=== PATIENT | female | born 1960 | race Caucasian/White ===

== ENCOUNTER 2021-09-05 22:15 | Emergency (ER) | payer OTHER ==
[2021-09-05 22:20] VITALS: TEMP 97.1
--- NOTE | 2021-09-05 23:03 | ED ---
Back Pain HPI - General Chief Complaint: Back Pain/Injury Stated Complaint: Rib Pain Time Seen by Provider: 09/05/21 22:32 Source: patient, RN notes reviewed, old records reviewed Limitations: no limitations - History of Present Illness Initial Comments: This is a 7-year-old female to the ER for evaluation. Patient presents today for evaluation of back pain chest pain. Patient has no significant history of similar injury. Patient was given a house and complained of pain severe pain in her chest wall on her back. No shortness of breath. Symptoms for 3 days she is here chiropractic 3 times with no help MD Complaint: back pain, back injury -: days(s) Similar Symptoms Previously: Yes Place: home Radiation: buttocks Severity: moderate Severity scale (1-10): 4 Quality: burning, sharp Consistency: constant Improves With: none Worsens With: none Associated Symptoms: denies other symptoms Treatments Prior to Arrival: other (none) - Related Data Home Medications Medication Instructions Recorded Confirmed Acetaminophen Tab [Tylenol Tab] 500 mg PO Q6H PRN 03/26/16 03/26/16 Azithromycin [Zithromax Z-pack] 250 - 500 mg PO DIRECTED 03/26/16 03/26/16 Benzonatate [Tessalon] 200 mg PO TID PRN 03/26/16 03/26/16 Previous Rx's Medication Instructions Recorded predniSONE 50 mg PO DAILY #5 tab 03/26/16 Allergies Allergy/AdvReac Type Severity Reaction Status Date / Time ibuprofen [From Motrin] Allergy Severe Rash/Hives Verified 03/26/16 14:41 shellfish derived [Shellfish] Allergy Swelling Verified 03/26/16 14:41 Review of Systems ROS Statement: Those systems with pertinent positive or pertinent negative responses have been documented in the HPI. ROS Other: All systems not noted in ROS Statement are negative. Past Medical History Past Medical History: No Reported History Additional Past Medical History / Comment(s): chronic back pain History of Any Multi-Drug Resistant Organisms: None Reported Past Surgical History: Section, Hysterectomy Past Psychological History: No Psychological Hx Reported Smoking Status: Current some day smoker Past Alcohol Use History: Rare Past Drug Use History: Marijuana General Exam Limitations: no limitations General appearance: alert, in no apparent distress Head exam: Present: atraumatic, normocephalic, normal inspection Eye exam: Present: normal appearance, PERRL, EOMI. Absent: scleral icterus, conjunctival injection, periorbital swelling ENT exam: Present: normal exam, mucous membranes moist Neck exam: Present: normal inspection. Absent: tenderness, meningismus, lymphadenopathy Respiratory exam: Present: normal lung sounds bilaterally. Absent: respiratory distress, wheezes, rales, rhonchi, stridor Cardiovascular Exam: Present: regular rate, normal rhythm, normal heart sounds. Absent: systolic murmur, diastolic murmur, rubs, gallop, clicks GI/Abdominal exam: Present: soft, normal bowel sounds. Absent: distended, tenderness, guarding, rebound, rigid Extremities exam: Present: normal inspection, full ROM, normal capillary refill. Absent: tenderness, pedal edema, joint swelling, calf tenderness Back exam: Present: normal inspection Neurological exam: Present: alert, oriented X3, CN II-XII intact Psychiatric exam: Present: normal affect, normal mood Skin exam: Present: warm, dry, intact, normal color. Absent: rash Course Vital Signs 09/05/21 22:17 Temperature 97.1 F L Pulse Rate 97 Respiratory 20 Rate Blood Pressure 152/91 O2 Sat by Pulse 94 L Oximetry - Reevaluation(s) Reevaluation #1: 09/06/21 01:30 Medical record is reviewed Reevaluation #2: 09/06/21 01:30 Patient is a improved and patient feels improved Medical Decision Making - Medical Decision Making 61 female to the emergency department for chest wall pain. Pain is improved here in the ER patient can be discharged home - Radiology Data Radiology results: report reviewed (Chest x-rays negative for acute disease), image reviewed Disposition Clinical Impression: Costochondritis, acute, Rib pain Disposition: ADMITTED IP TO THIS HOSP Condition: Fair Is patient prescribed a controlled substance at d/c from ED?: No Referrals: Nonstaff,Physician [Primary Care Provider] - 1-2 days
[2021-09-05] MEDS ORDERED: diazePAM 5 MG TAB PO STA (23:28)
[2021-09-05] MEDS ORDERED: HYDROmorphone 1 MG/ML 1 ML SYRINGE IM STA (23:28)
--- NOTE | 2021-09-05 23:56 | XR ---
EXAMINATION TYPE: XR chest 1V portable DATE OF EXAM: 09/05/2021 COMPARISON: 03/26/2016 HISTORY: Pain TECHNIQUE: Single view FINDINGS: There is some pulmonary hyperinflation with flattening the diaphragm. Heart and mediastinum are normal. There is no pleural effusion. There are no hilar masses. Bony thorax is intact. IMPRESSION: No active cardiopulmonary disease. There is probably COPD. No change.
[2021-09-06] MEDS ORDERED: traMADol 50 MG STARTER PACK 3 TAB BTL PO STA (01:27)
[2021-09-06] MEDS ORDERED: CYCLOBENZAPRINE 10MG STARTER 3 TAB BTL PO STA (01:27)
[2021-09-06] MEDS ORDERED: dexAMETHasone 2 MG TAB PO STA (01:31)
[2021-09-06 01:56] VITALS: BP 142/79; PULSE 56; RESP 18
== END 2021-09-06 01:53 | disposition other institution (70) ==
LOC: EC 22:15
DX: M94.0 Chondrocostal junction syndrome [Tietze] (principal); F17.200 Nicotine dependence, unspecified, uncomplicated; F12.90 Cannabis use, unspecified, uncomplicated; Z88.6 Allergy status to analgesic agent; Z90.710 Acquired absence of both cervix and uterus
CPT/HCPCS: 99285; 96372; 71045; J1170; J8540

== ENCOUNTER 2021-10-08 10:12 | Emergency (ER) | payer OTHER ==
[2021-10-08 11:35] VITALS: BP 112/76; RESP 20; TEMP 97.8
--- NOTE | 2021-10-08 11:53 | XR ---
EXAMINATION TYPE: XR chest 2V DATE OF EXAM: 10/08/2021 COMPARISON: Chest x-ray September 05, 2021 HISTORY: Cough and shortness of breath. COVID exposure. TECHNIQUE: Frontal and lateral views of the chest are obtained. FINDINGS: Background moderate chronic emphysematous and upper lung pulmonary fibrotic change without suspicious new focal air space opacity, pleural effusion, or pneumothorax seen. The cardiac silhoue tte size is stable and within normal limits. The osseous structures are intact. IMPRESSION: Chronic changes without new acute pulmonary process.
[2021-10-08] MEDS ORDERED: IPRATROPIUM-ALBUTEROL 3 ML NEB INHALATION STA (12:50)
--- NOTE | 2021-10-08 12:52 | ED ---
URI HPI - General Chief Complaint: Upper Respiratory Infection Stated Complaint: Covid exposure, SOB Time Seen by Provider: 10/08/21 11:53 Source: patient, RN notes reviewed Mode of arrival: ambulatory Limitations: no limitations - History of Present Illness Initial Comments: This a 61-year-old female presents emergency from chief complaint of cough gonzález estion 3-4 days. Patient states she was exposed to cold 19 over the weekend. Patient states she has fever on Friday and Friday. Patient states that she's had increasing cough congestion. No chest pain. Patient states there is her from coughing. Patient is a former smoker quit one year ago. Patient denies any rashes no nausea vomiting diarrhea constipation no other complaints. - Related Data Home Medications Medication Instructions Recorded Confirmed Acetaminophen Tab [Tylenol Tab] 500 mg PO Q6H PRN 03/26/16 03/26/16 Azithromycin [Zithromax Z-pack] 250 - 500 mg PO DIRECTED 03/26/16 03/26/16 Benzonatate [Tessalon] 200 mg PO TID PRN 03/26/16 03/26/16 Previous Rx's Medication Instructions Recorded predniSONE 50 mg PO DAILY #5 tab 03/26/16 Azithromycin [Zithromax Z-pack (6 0 mg PO DIRECTED #1 packet 10/08/21 tabs)] predniSONE 50 mg PO DAILY #5 tab 10/08/21 Allergies Allergy/AdvReac Type Severity Reaction Status Date / Time ibuprofen [From Motrin] Allergy Severe Rash/Hives Verified 10/08/21 11:35 shellfish derived [Shellfish] Allergy Swelling Verified 10/08/21 11:35 Review of Systems ROS Statement: Those systems with pertinent positive or pertinent negative responses have been documented in the HPI. ROS Other: All systems not noted in ROS Statement are negative. Past Medical History Past Medical History: No Reported History Additional Past Medical History / Comment(s): chronic back pain History of Any Multi-Drug Resistant Organisms: None Reported Past Surgical History: Section, Hysterectomy Past Psychological History: No Psychological Hx Reported Smoking Status: Former smoker Past Alcohol Use History: Rare Past Drug Use History: Marijuana General Exam Limitations: no limitations General appearance: alert, in no apparent distress Head exam: Present: atraumatic, normocephalic, normal inspection Eye exam: Present: normal appearance, PERRL, EOMI. Absent: scleral icterus, conjunctival injection, periorbital swelling ENT exam: Present: normal exam, mucous membranes moist Neck exam: Present: normal inspection. Absent: tenderness, meningismus, lymphadenopathy Respiratory exam: Present: wheezes. Absent: normal lung sounds bilaterally, respiratory distress, rales, rhonchi, stridor Cardiovascular Exam: Present: regular rate, normal rhythm, normal heart sounds. Absent: systolic murmur, diastolic murmur, rubs, gallop, clicks Course Vital Signs 10/08/21 11:28 Temperature 97.8 F Pulse Rate 75 Respiratory 20 Rate Blood Pressure 112/76 O2 Sat by Pulse 93 L Oximetry Medical Decision Making - Medical Decision Making Patient's x-ray does not show definitive pneumonia, COVID-19 is negative patient discharged in stable condition return parameters were discussed. - Lab Data Lab Results 10/08/21 Range/Units 11:38 Coronavirus (PCR) Not Detected (Not Detectd) Disposition Clinical Impression: Bronchitis Disposition: HOME SELF-CARE Condition: Stable Instructions (If sedation given, give patient instructions): Upper Respiratory Infection (ED) Additional Instructions: Please return to the Emergency Department if symptoms worsen or any other concerns. Prescriptions: predniSONE 50 mg PO DAILY #5 tab Azithromycin [Zithromax Z-pack (6 tabs)] 0 mg PO DIRECTED #1 packet Is patient prescribed a controlled substance at d/c from ED?: No Referrals: Flavio Polk MD [Primary Care Provider] - 1-2 days Time of Disposition: 12:52
[2021-10-08 13:13] VITALS: PULSE 84
== END 2021-10-08 13:35 | disposition home or self-care (01) ==
LOC: EC 10:12
DX: J40 Bronchitis, not specified as acute or chronic (principal); Z20.822 Contact with and (suspected) exposure to COVID-19; Z87.891 Personal history of nicotine dependence; Z88.6 Allergy status to analgesic agent; Z91.013 Allergy to seafood
CPT/HCPCS: 71046; 87635; 94640; 99285